=== PATIENT | female | born 1955 | race Hispanic/Latino ===

== ENCOUNTER → 2021-06-27 | Outpatient (CLI) | payer BC | LOC: RAD 10:18 | PROVIDERS: ATTEND Family Medicine | DX: M79.672 Pain in left foot (principal); M79.605 Pain in left leg | CPT/HCPCS: 93971 ==

== ENCOUNTER → 2024-07-30 | Outpatient (REF) | payer MEDICARE | LOC: DX 09:09 | PROVIDERS: ATTEND Family Medicine | DX: K21.9 Gastro-esophageal reflux disease without esophagitis (principal) | CPT/HCPCS: 74246 ==